=== PATIENT | female | born 1995 | race Caucasian/White ===

== ENCOUNTER 2017-08-29 10:58 | Outpatient (CLI) | END 2017-08-29 10:59 | disposition home or self-care (01) | LOC: LAB 10:58 | PROVIDERS: ATTEND Emergency Medicine | DX: Z00.00 Encounter for general adult medical examination without abnormal findings (principal) | CPT/HCPCS: 36415; 80053; 84436; 84443; 84479; 85025; 85705 ==

== ENCOUNTER 2017-09-24 14:49 | Outpatient (CLI) | END 2017-09-24 14:50 | disposition home or self-care (01) | LOC: RHC-LAB 14:49 | PROVIDERS: ATTEND Emergency Medicine | DX: R68.89 Other general symptoms and signs (principal); J06.9 Acute upper respiratory infection, unspecified | CPT/HCPCS: 87651; 87804 ==

== ENCOUNTER 2018-06-26 14:05 | Outpatient (CLI) | payer OTHER ==
--- NOTE | 2018-06-26 15:05 | DI ---
EXAM: Single view of the abdomen. History: Abdominal pain. Findings: Nonspecific but nonobstructive bowel gas pattern. No free intraperitoneal air. Mild to m oderate colonic stool. No suspicious calcifications and no acute osseous abnormalities. Impression: No acute radiographic findings within the abdomen
== END 2018-06-26 14:06 | disposition home or self-care (01) ==
LOC: RAD 14:05
PROVIDERS: ATTEND Nurse Practitioner Family
DX: R10.9 Unspecified abdominal pain (principal)

== ENCOUNTER 2018-10-04 07:42 | Outpatient (CLI) | END 2018-10-04 07:43 | disposition home or self-care (01) | LOC: CAR 07:42 | PROVIDERS: ATTEND Nurse Practitioner Family | DX: R00.2 Palpitations (principal); Z13.1 Encounter for screening for diabetes mellitus; Z13.220 Encounter for screening for lipoid disorders; Z31.9 Encounter for procreative management, unspecified | CPT/HCPCS: 36415; 80053; 80061; 83036; 84439; 84443; 85025; 93005; 93010 ==

== ENCOUNTER 2018-10-14 08:03 | Outpatient (CLI) ==
--- NOTE | 2018-10-16 09:47 | HOLTER ---
PATIENT INFORMATION AND COMMENTS Attending Physician: WAGNER CORNELIUS APRN Indications: PALPITATIONS __ Patient Medications: NO PRESCRIPTION MEDICATION __ Pre-procedure Summary: Protocol: Standard Heart Rate Started: 10/14/18 1226 Minimum: 51 BPM Weight: 130 LBS Ended: 10/15/18 1208 Maximum: 132 BPM Height: 60" Duration: 23 HRS 41 MIN Average: 81 BPM _ INTERPRETATIONS/OBSERVATIONS: 1. BASIC RHYTHM: SINUS, RATE 50 BPM TO 130 BPM, AVERAGE 80 BPM 2. RARE PAC'S AND PVC'S 3. NO ST-T WAVE CHANGES FROM BASELINE 4. ACTIVITY LOG NOT MAINTAINED MTDD
== END 2018-10-14 08:04 | disposition home or self-care (01) ==
LOC: CAR 08:03
PROVIDERS: ATTEND Nurse Practitioner Family
DX: R00.2 Palpitations (principal)
CPT/HCPCS: 93227